=== PATIENT | male | born 1990 | race Asian ===

== ENCOUNTER 2021-06-23 21:53 | Emergency (ER) | payer OTHER ==
[2021-06-23] MEDS ORDERED: Metoclopramide HCl 10 MG/2 ML VIAL ONE (22:39)
[2021-06-23] MEDS ORDERED: Ketorolac Tromethamine 30 MG/ML VIAL ONE (22:39)
== END 2021-06-24 00:05 | disposition home or self-care (01) ==
LOC: ERS 21:53
DX: G43.909 Migraine, unspecified, not intractable, without status migrainosus (principal)
CPT/HCPCS: 96365; 96375; J1885; J2765